=== PATIENT | male | born 1990 | race African-American/Black ===

== ENCOUNTER 2017-09-20 19:13 | Emergency (ER) | payer OTHER ==
[~2017-09-20] VITALS: Ht 175.3 cm; Wt 78.0 kg
[2017-09-20] MEDS ORDERED: KETOROLAC 30MG/ML VIAL IV STA (19:27)
[2017-09-20] MEDS ORDERED: ONDANSETRON HCL 4MG/2ML VIAL IV STA (19:27)
[2017-09-20] MEDS ORDERED: SODIUM CHLORIDE 0.9% 1,000 ML IV ONE (19:27)
[2017-09-20 20:11] LABS: BASOPHILS % 0.5 % (0.0-2.0); EOSINOPHILS % 0.4 % (0.0-5.0); HEMATOCRIT. 40.2 % (42.0-52.0); HEMOGLOBIN. 13.4 g/dL (14.0-18.0); MEAN CORPUSCULAR HEMOGLOBIN 30.1 pg (28.0-32.0); MEAN CORPUSCULAR VOLUME 90.6 fL (80.0-94.0); MEAN PLATELET VOLUME 8.9 fl (7.4-10.4); MONOCYTES % 3.2 % (2.0-8.0); NEUTROPHILS % 80.9 % (40.0-76.0); PLATELET 219 x1000/uL (130-400); RED BLOOD CELL COUNT 4.44 mill/uL (4.7-6.1); RED CELL DISTRIBUTION WIDTH 14.7 % (11.6-14.6)
[2017-09-20 20:14] LABS: CHLORIDE 106 mEq/L (98-107)
[2017-09-20 20:18] LABS: ETHANOL BLOOD < 10 mg/dL
[2017-09-20] MEDS ORDERED: MORPHINE SULFATE 2 MG/ML CPJ (NOT FOR IM USE) IV ONE ×2 (22:15)
[2017-09-21 00:03] VITALS: BP 143/93
== END 2017-09-21 00:05 | disposition home or self-care (01) ==
LOC: ER 19:13
DX: R10.13 Epigastric pain (principal); R11.2 Nausea with vomiting, unspecified; I10 Essential (primary) hypertension; F17.200 Nicotine dependence, unspecified, uncomplicated
CPT/HCPCS: 36415; 74176; 80053; 85025; 96361; 96374; 96375; 99285; G0482; J1885; J2270; J2405; J7030; Z7610

== ENCOUNTER 2018-05-31 16:04 | Emergency (ER) | payer SELFPAY ==
[~2018-05-31] VITALS: Ht 177.8 cm; Wt 73.0 kg
[2018-05-31] MEDS ORDERED: SODIUM CHLORIDE 0.9% 1,000 ML IV ONE (16:52)
[2018-05-31] MEDS ORDERED: KETOROLAC 30MG/ML VIAL IV STA (16:52)
[2018-05-31 17:07] LABS: BASOPHILS % 0.4 % (0.0-2.0); EOSINOPHILS % 0.7 % (0.0-5.0); HEMATOCRIT. 37.7 % (42.0-52.0); HEMOGLOBIN. 12.6 g/dL (14.0-18.0); LYMPHOCYTES % 9.7 % (20.0-50.0); MEAN CORPUSCULAR HEMOGLOBIN 29.3 pg (28.0-32.0); MEAN CORPUSCULAR VOLUME 87.6 fL (80.0-94.0); MEAN PLATELET VOLUME 8.1 fl (7.4-10.4); MONOCYTES % 7.1 % (2.0-8.0); NEUTROPHILS % 82.1 % (40.0-76.0); PLATELET 284 x1000/uL (130-400); RED BLOOD CELL COUNT 4.31 mill/uL (4.7-6.1); RED CELL DISTRIBUTION WIDTH 15.2 % (11.6-14.6)
[2018-05-31 17:13] LABS: CHLORIDE 108 mEq/L (98-107)
[2018-05-31 17:15] LABS: PROTHROMBIN TIME 10.6 sec (9.6-11.0)
[2018-05-31 17:18] LABS: ETHANOL BLOOD < 10 mg/dL
[2018-05-31 20:13] LABS: CLARITY URINE CLEAR (CLEAR); COLOR URINE YELLOW (YELLOW); KETONES URINE 2+ (NEGATIVE); LEUKOCYTE ESTERASE URINE 1+ (NEGATIVE); NITRITE URINE NEGATIVE (NEGATIVE); OCCULT BLOOD URINE NEGATIVE (NEGATIVE); PH URINE 6.5 (4.5-8.0); PROTEIN URINE TRACE (NEGATIVE); SPECIFIC GRAVITY URINE 1.026 (1.005-1.030)
[2018-05-31] MEDS ORDERED: KETOROLAC 15MG/ML VIAL IV ONE (20:30)
[2018-05-31] MEDS ORDERED: ONDANSETRON HCL 4MG/2ML INJ IV ONE (20:30)
[2018-05-31 20:45] LABS: *BARBITURATES SCREEN URINE NEGATIVE (NEGATIVE); *BENZODIAZEPINES SCREEN URINE NEGATIVE (NEGATIVE)
[2018-05-31 20:46] LABS: *AMPHETAMINES SCREEN URINE PRESUMTIVE POSITIVE (NEGATIVE); *COCAINE SCREEN URINE NEGATIVE (NEGATIVE); CANNABINOID URINE SCREEN PRESUMTIVE POSITIVE (NEGATIVE); METHADONE URINE SCREEN NEGATIVE (NEGATIVE); OPIATES URINE SCREEN NEGATIVE (NEGATIVE); PHENCYCLIDINE URINE SCREEN PRESUMTIVE POSITIVE (NEGATIVE)
[2018-05-31] MEDS ORDERED: METOCLOPRAMIDE HCL 10MG/2ML VIAL IV ONE (21:15)
[2018-05-31] MEDS ORDERED: HALOPERIDOL 5MG TABLET PO ONE (21:15)
[2018-05-31 23:07] VITALS: BP 148/85
== END 2018-05-31 23:08 | disposition home or self-care (01) ==
LOC: ER 16:04
DX: G43.A0 Cyclical vomiting, in migraine, not intractable (principal); R10.9 Unspecified abdominal pain
CPT/HCPCS: 36415; 74176; 80053; 80305; 80320; 81003; 83690; 85025; 85610; 96361; 96374; 96375; 99284; J1630; J1885; J2405; J2765; J7030; Z7610; G0480